=== PATIENT | female | born 1970 | race Caucasian/White ===

== ENCOUNTER 2016-07-18 10:51 | Day surgery (SDC) | payer OTHER ==
[~2016-07-18] VITALS: Ht 142.2 cm; Wt 83.9 kg
[~2016-07-18 10:51] MED LIST: GLUCOTROL XL5 MG PO; METFORMIN HCL500 M1 PO; TENORMIN25 MG PO; TRAMADOL HCL50 MG PO
[2016-07-18 12:03] LABS: ANION GAP 9 MEQ/L (2-14); CHLORIDE 102 MEQ/L (99-109); POTASSIUM 3.7 MEQ/L (3.7-5.4); SAMPLE HEMOLYSIS CHECK 0; SAMPLE ICTERIC CHECK 0; SAMPLE LIPEMIA CHECK 0; SODIUM 139 MEQ/L (136-147)
[2016-07-18 12:04] VITALS: BP 119/58
[2016-07-18 12:08] LABS: GFR ESTIMATE (CALCULATED) > 59 mL/min/; GLUCOSE 156 mg/dL (70-99); UREA NITROGEN (BUN) 15 mg/dL (9-23)
[2016-07-18 14:31] LABS: POINT-OF-CARE METER ID UU13113675
[2016-07-18 14:55] VITALS: BP 112/57
[2016-07-18 15:55] VITALS: BP 100/58
[2016-07-18 17:08] VITALS: BP 112/57
== END 2016-07-18 17:10 | disposition home or self-care (01) ==
LOC: SDC 10:51
PROVIDERS: Podiatrist Foot & Ankle Surgery
PROC: 01N Peripheral Nervous System, Release (ICD-10-PCS; principal; 2016-07-18)
DX: M72.2 Plantar fascial fibromatosis (principal); E11.65 Type 2 diabetes mellitus with hyperglycemia; E66.9 Obesity, unspecified; Z68.42 Body mass index [BMI] 45.0-49.9, adult; Z79.84 Long term (current) use of oral hypoglycemic drugs; Z88.2 Allergy status to sulfonamides; Z88.1 Allergy status to other antibiotic agents; Z91.040 Latex allergy status; Z88.0 Allergy status to penicillin
CPT/HCPCS: 80048; 82948; J0690; J1100; J2250; J2405; J3010; S0020